=== PATIENT | female | born 1955 | race Caucasian/White ===

== ENCOUNTER → 2023-07-24 09:33 | Outpatient (REF) | payer MEDICARE, SELFPAY | LOC: HWWDC 09:33 | PROVIDERS: ATTENDING PHYSICIAN Obstetrics & Gynecology; FAMILY PHYSICIAN Physician Assistant | DX: Z12.31 Encounter for screening mammogram for malignant neoplasm of breast (principal) | CPT/HCPCS: 77063; 77067 ==

== ENCOUNTER 2024-08-13 11:34 | Emergency (ER) | payer MEDICARE, SELFPAY ==
[2024-08-13 11:42] VITALS: BP 144/79
[2024-08-13 12:31] LABS: % Basophils 0.6 % (0-2); % Immature Granulocytes 0.3 % (0-0.5); % Lymphocytes 28.4 % (20.5-51.1); % Monocytes 9.3 % (1.7-9.3); % Neutrophils 60.4 % (42.2-75.2); Absolute Basophils 0.1 10^3/uL (0-0.2); Absolute Eosinophils 0.1 10^3/uL (0-0.7); Absolute Lymphocytes 2.3 10^3/uL (1.2-3.4); Absolute Monocytes 0.7 10^3/uL (0.1-0.6); Absolute Neutrophils 4.8 10^3/uL (1.4-6.5); Hematocrit 35.6 % (37.0-47.0); Hemoglobin 12.1 g/dL (12.0-16.0); Mean Corpuscular Hgb 31.9 pg (27.0-31.0); Mean Corpuscular Volume 93.9 fL (81.0-99.0); Mean Platelet Volume 9.6 fL (7.4-10.4); Nucleated Red Blood Cells % 0 %; Platelet Count 255 10^3/uL (130-400); Red Blood Cell Count 3.79 10^6/uL (4.20-5.40); Red Cell Dist. Width 11.5 % (11.5-14.5)
[2024-08-13 12:40] LABS: Urine Albumin 1+ (Neg - Trace); Urine Bilirubin Negative (Negative); Urine Character Clear (Clear); Urine Color Yellow; Urine Glucose Negative (Negative); Urine Ketone Negative (Negative); Urine Leukocyte 1+ (Negative); Urine Nitrite Negative (Negative); Urine Occult Blood 1+ (Negative); Urine Specific Gravity 1.015 (<1.030); Urine Urobilinogen 1+ (Neg - 1+)
[2024-08-13 12:44] LABS: ALT (SGPT) 20 U/L (0-35); AST (SGOT) 21 U/L (14-36); Alkaline Phosphatase 52 U/L (38-126); Blood Urea Nitrogen 14 mg/dl (7-17); Calcium 9.6 mg/dl (8.4-10.2); Carbon Dioxide 26 mmol/L (22-30); Chloride 108 mmol/L (98-107); Glucose 112 mg/dl (70-99); Lipase 81 U/L (23-300); Potassium 4.2 mmol/L (3.5-5.1); Sodium 140 mmol/L (135-145); Total Bilirubin 0.6 mg/dl (0.2-1.3); Total Protein 6.5 g/dl (6.3-8.2); eGFR > 60.00
--- NOTE | 2024-08-13 12:54 | ED.GENMED ---
History of Present Illness
General
Chief Complaint: Abdominal Pain
Source: patient
Exam Limitations: none
Time Seen by Provider: 08/13/24 12:07
Nursing documentation reviewed up to this point in time: agreed with
History of Present Illness
History of Present Illness:
69-year-old female with a past medical history of hyperlipidemia who presents to the emergency department for evaluation of abdominal pain. Patient reports onset of symptoms Saturday morning they have been constant since that time. She reports pain
across the lower abdomen 'like built-up gas.' No clear triggering or relieving factors noted. She denies any associated nausea, vomiting, diarrhea, constipation. She has not noticed any dysuria, hematuria, change in urinary frequency. She has
had associated fever with a Tmax of 101 �F. She denies similar symptoms in the past. Prior history of no other abdominal surgeries.
Review of Systems
Review of Systems
All Other Systems: ROS reviewed and negative except as documented in HPI and ROS
Constitutional: Reports fever and chills
Respiratory: Denies trouble breathing
Cardiac: Denies chest pain
ABD/GI: Reports abdominal pain; Denies nausea, vomiting, diarrhea or constipated
: Denies dysuria, frequency or flank pain
Musculoskeletal: Denies neck pain or back pain
Neurological: Denies headache
Phy Exam
Physical Exam
Physical Exam:
General: Awake, alert; no acute distress
Head: Normocephalic, atraumatic
Eyes: Conjunctiva normal, sclera anicteric
Throat: Airway intact, handling secretions
Neck: Trachea midline
Lungs: Clear to auscultation bilaterally, no wheezing, rales, rhonchi
Heart: Regular rate and rhythm, no murmurs, gallops, or rubs
Abd: Soft, non distended, tender to palpation across the lower abdomen with no peritoneal signs and no appreciable masses
Back: No CVA tenderness
Neuro: No gross deficits
Skin: no rash in area of concern
Extremities: Warm and well-perfused
Scores
Heart Failure Risk
Heart Failure Risk Score: Not Applicable
Heart Score for Chest Pain Patients
STEMI patient?: Not applicable
Withdrawal Assessment of Alcohol
Withdrawal Assessment Completed?: Not applicable
Course
Orders/Labs/Results
Orders:
Orders
08/13/24 12:08
CT Abd/pelvis W Iv Cont Urgent
Comment:
Reason For Exam: lower abd pain, fever
08/13/24 12:19
Complete Blood Count/With Diff Urgent
Comprehensive Metabolic Panel Urgent
Lipase Urgent
Urinalysis Reflex To Culture Urgent
Date Specimen was Collected: 08/13/24
Time Specimen was Collected: 12:18
Urine Microscopic Reflex Cult Urgent
Urine Culture Urgent
KYARA Source: U
Specimen Description:
Date Specimen was Collected: 08/13/24
Time Specimen was Collected: 12:18
Abnormal Lab Results
08/13/24
12:19
RBC 3.79 L 10^6/uL
(4.20-5.40)
Hct 35.6 L %
(37.0-47.0)
MCH 31.9 H pg
(27.0-31.0)
Absolute Monos (auto) 0.7 H 10^3/uL
(0.1-0.6)
Chloride 108 H mmol/L
(98-107)
Glucose 112 H mg/dl
(70-99)
Ur Occult Blood Reflex 1+ A
(Negative)
Leukocyte Esterase Rfl 1+ A
(Negative)
Urine Albumin (Reflex) 1+ A
(Neg - Trace)
08/13/24 12:19
08/13/24 12:19
Vital Signs
Initial and Last Documented VS:
Initial Vital Signs
Temp Pulse Resp BP Pulse Ox
36.8 C 70 16 144/79 95
08/13/24 11:42 08/13/24 11:42 08/13/24 11:42 08/13/24 11:42 08/13/24 11:42
Last Documented Vital Signs
Temp Pulse Resp BP Pulse Ox
36.8 C 70 16 144/79 95
08/13/24 11:42 08/13/24 11:42 08/13/24 12:21 08/13/24 11:42 08/13/24 11:42
MDM/Problems Addressed
Differential Diagnosis Includes:
Diverticulitis, pain ascites, UTI, nephrolithiasis, constipation
MDM/Problems Addressed:
69-year-old female presents for evaluation of lower abdominal pain associated with fever for the past 2 days. Vitals and exam as above. Plan to place an IV check labs including a CBC and a CMP, urinalysis. Will check CT of the abdomen pelvis.
Will monitor closely reassess after the above.
Labs reviewed: CBC shows no clinically significant abnormalities, CMP within acceptable range. Urinalysis shows trace blood but negative for acute infection. CT is pending.
*Radiology
Radiology exam reviewed: radiology read reviewed
*Pulse Oximetry
Patient hypoxic: no
*Critical Care Note
Total Time (30-74mins, 75-104mins- exclusive of procedures): Not Applicable
Data Reviewed
Source: patient
ED Attending Note
-
Portions of this chart may have been created with voice recognition software.� Occasional wrong word or��sound alike� substitutions may have occurred due to the inherent limitations of voice recognition software.
Discharge Plan
Interventions
Interventions:
*Risk Screen - Suicide Last Done: 08/13/24 11:46
*General Assessment Last Done: 08/13/24 11:46
*Neglect/Abuse Screening Last Done: 08/13/24 11:46
*ED- Fall Risk Assessment Last Done: 08/13/24 12:09
*ED COVID-19 Vaccine History Last Done: 08/13/24 12:09
SP-Lhvuay-Wpjftqypwu Assessment Last Done: 08/13/24 12:21
Discharge Date and Time
Print Language: AZERI
[2024-08-13 13:54] LABS: Urine Mucus Few
[2024-08-13 13:56] LABS: Urine Amorphous Seen; Urine Urothelial Cell 0-2 /LPF (FEW)
[2024-08-13 13:58] LABS: Urine Red Blood Cell 0-2 /HPF (0-2); Urine White Cell 0-2 /HPF (0-5)
[2024-08-13 14:05] VITALS: BP 125/56
[2024-08-13] MEDS: AUGMENTIN 875 MG/125 MG 1 TABLET PO (14:56)
== END 2024-08-13 15:00 | disposition home or self-care (01) ==
LOC: EMR 11:34
PROVIDERS: EMERGENCY PHYSICIAN Emergency Medicine; FAMILY PHYSICIAN Physician Assistant Medical
DX: K57.32 Diverticulitis of large intestine without perforation or abscess without bleeding (principal); E78.5 Hyperlipidemia, unspecified
CPT/HCPCS: 99285; 74177; 80053; 81003; 81015; 83690; 85025; 87086; Q9967